=== PATIENT | male | born 1990 | race Hispanic/Latino ===

== ENCOUNTER 2021-01-05 19:58 | Emergency (ER) | payer OTHER ==
[~2021-01-05] VITALS: Ht 182.9 cm; Wt 90.7 kg
[2021-01-05] MEDS ORDERED: HYDROCODONE/APAP 10MG-325MG TAB PO ONE (20:15)
[2021-01-05] MEDS ORDERED: ROBAXIN-750750 MG PO (21:43)
[2021-01-05 22:03] VITALS: BP 119/73
== END 2021-01-05 21:55 | disposition home or self-care (01) ==
LOC: ER 20:40
DX: S00.83XA Contusion of other part of head, initial encounter (principal); R51.9 Headache, unspecified; V43.52XA Car driver injured in collision with other type car in traffic accident, initial encounter; Y92.488 Other paved roadways as the place of occurrence of the external cause
CPT/HCPCS: 70450; 72125; 99283